=== PATIENT | male | born 1995 | race Caucasian/White ===

== ENCOUNTER 2024-12-01 14:17 | Emergency (ER) | payer OTHER, SELFPAY ==
[2024-12-01 14:40] VITALS: BP 148/82; PULSE 108; RESP 18; TEMP 38.1; O2SAT 99; BMI 27.6
[2024-12-01 15:59] VITALS: BP 139/82; PULSE 115; RESP 18; TEMP 36.9; O2SAT 100
[2024-12-01] MEDS: LIDOCAINE 1% W/EPI 20ML 10 ML SUBCUT (17:17)
--- NOTE | 2024-12-01 17:50 | ED_ITS ---
<Statement entered by Jl Singh DO - 12/01/24 22:57> Dr. Singh: I was immediately available in the department for consultation. I did not actually see the patient. HPI - Skin/Abscess/Foreign Bdy General Chief complaint: Skin/Abscess/Foreign Body Stated complaint: Cyst on neck x2 weeks Time Seen by Provider: 12/01/24 15:42 Source: patient Mode of arrival: Ambulatory Limitations: no limitations History of Present Illness HPI narrative: 29-year-old male presents with concern for 2 weeks of swelling and mild tenderness at the back of his neck. He states that he has been looking in the mirror it does not feel like the area has gotten larger there has been a small amount of redness there but he thinks it is possible that this is from his shirt collar rubbing on it. He states he is always wearing something over the area at work. It has been slightly tender to touch and he came in today not because it was getting worse but because it has persisted for 2 weeks. He does not remember having any cyst there in the past and does not feel he has ever had any skin abscess issues or swelling at that site. He has been dealing with upper respiratory symptoms for the past few days to week states he has been congested and has had a mild sore throat/cough. He has not concerned about these symptoms now and does not request testing for this. Related Data Previous Rx's Medication Instructions Recorded amoxicillin 875 mg-potassium 1 tab PO Q12H 10 days #20 tabs 12/01/24 clavulanate 125 mg tablet Allergies Allergy/AdvReac Type Severity Reaction Status Date / Time No Known Drug Allergies Allergy Verified 12/01/24 14:46 Review of Systems Review of Systems Narrative: See HPI Patient History Social History Smoking Status: Never smoker Smoking Status: Never smoker Exam Narrative Exam Narrative: GENERAL: [29] year old patient appears stated age. Well-developed patient, in mild distress. Nontoxic appearing. HEAD: Atraumatic. Normocephalic. EYES: Pupils equal round and reactive. Extraocular motions intact. No scleral icterus. No injection or drainage. ENT: See back. Nose without bleeding, purulent drainage. Airway patent. NECK: Trachea midline. Non tender CARDIOVASCULAR: Regular rate and rhythm without murmurs, gallops, or rubs. RESPIRATORY: Clear to auscultation. Breath sounds equal bilaterally. No wheezes, rales, or rhonchi. EXTREMITIES: Moving all extremities, normal gait BACK: There is an approximately 3 cm x 4 cm by 1 cm in depth/height mass on the patient's low posterior neck slightly left of midline. There is mild erythema present in approximately a 2 cm area it is generally firm and indurated however the center of the lesion does have some fluctuance present. It is moderately tender to palpation over the center of the lesion. Nontender without deformity or crepitance. No flank tenderness. NEURO: AOx3. SKIN: No rash or erythema of visible areas Initial Vital Signs Initial Vital Signs: Vital Signs Temperature 100.6 F H 12/01/24 14:40 Pulse Rate 108 H 12/01/24 14:40 Respiratory Rate 18 12/01/24 14:40 Blood Pressure 148/82 H 12/01/24 14:40 Pulse Oximetry 99 12/01/24 14:40 Oxygen Delivery Method Room Air 12/01/24 14:40 Procedures Abscess I/D I&D #1: Time of procedure: 18:10 Site: neck (posterior low) Side (if applicable): left Sedation/analgesia: none Local Anesthetic: lidocaine 1% and with epi Amount of anesthesia used (mL): 4 Technique: incised with #11 blade (6mm stab/incision) Amount of fluid expressed (mL): 5 Irrigation: Yes (30 cc NS pressure irrigation) Packing used?: iodoform (2,5cm) Course Orders Ordered: ED Orders 12/01/24 18:20 Wound Culture and Gram Stain Stat Discontinued Medications Amoxicillin/Clavulanate Potassium (Amoxicillin/Clav 875/125 Mg) 1 tab PO NOW ONE Stop: 12/01/24 18:50 Last Admin: 12/01/24 19:03 Dose: 1 tab Documented By: AIDEE Lidocaine/Epinephrine (Lidocaine 1% W/Epi 20ml) 10 ml SUBCUT NOW ONE Stop: 12/01/24 17:01 Last Admin: 12/01/24 17:17 Dose: 10 ml Documented By: AIDEE Vital Signs Vital signs: Vital Signs - 8 hr 12/01/24 14:40 12/01/24 15:59 Temperature 100.6 F H 98.5 F Pulse Rate 108 H 115 H Respiratory Rate 18 18 Blood Pressure 148/82 H 139/82 Pulse Oximetry 99 100 Oxygen Delivery Method Room Air Room Air MDM - Skin/Abscess/Foreign Bdy Differential Diagnosis Differential diagnosis: Likely abscess of skin or subcutaneous tissue, cell ulitis and other (Infected sebaceous cyst, URI) MDM Narrative Medical decision making narrative: Is a generally healthy 21-year-old male presenting with concern for a mass on the back of his neck that is slightly tender present for 2 weeks not growing in size or changing per patient. Exam is consistent with a abscess or infected sebaceous cyst. After discussion with the patient of options he elects to have incision and drainage, feel this is reasonable given location and fluctuance present at the center. There was relatively copious purulent material exuded after incision with an 11 blade and patient also had Casseous type material present. A wound culture was obtained and packing was placed. Patient recommended to follow up for a recheck and have packing removed or replaced in 48-72 hours. He was started on Augmentin with the 1st dose today in the emergency department. He had a very low-grade fever initially however on recheck with a oral thermometer he did not have a fever. He was slightly tachycardic initially as well but endorsed anxiety and nervousness about being in the ER and the procedure. He was quite well-appearing have low concern for sepsis, additional labs were not checked. The lesion itself was not suggestive of severe infection and appeared localized. Patient tolerated the procedure well. Return precautions provided, follow-up plan discussed, all questions answered. Discharge Plan Departure Patient Disposition: Home Clinical Impression: Cutaneous abscess of neck, Sebaceous cyst Activity Restrictions/Additional Instructions: *You have been diagnosed with [infected sebaceous cyst/abscess] *What to do: *Please continue to take your regular medications as directed. [1 ] New medication prescriptions sent to your pharmacy: [Augmentin] [ ] New medication written as a paper prescription [ ] No new medications given *Please follow up with your primary care provider in 2-3 days, call for an appointment. Let them know you were seen in the Emergency Department and that we ask that you be seen in follow up. We will electronically transmit a record of today's note if your PCP is in our system. You came in today with concern for a mass on the back of your neck that has been present for a few weeks. We performed an incision and drainage of the site and there was quite a bit of purulent/pus-like material that came out and some material that was consistent with a sebaceous cyst. I suspect that this is a infected sebaceous cyst. As we discussed you will likely have to have another procedure with dermatology or possibly your primary care provider if they are open to doing it to have this cyst sac fully removed. We placed you on antibiotics today please take these for the full course. We also placed some packing in the wound to allow it to continue to drain. I would like you to have this wound looked at again in 48-72 hours and at that time likely have the packing removed it is possible that provider may want to Re pack it but hopefully this should not be necessary. I do recommend you contact Dermatology and work on getting an appointment to have this addressed. Even if the infection resolves it was likely to become inflamed or possibly infected again in the future if it is truly a sebaceous cyst. We did get a culture today and once the lab results returned we will have more information regarding infection. Monitor for fevers, increasing pain or new swelling at that site or any other symptoms of concern and make sure you get rechecked these develop. I hope you feel better soon *If you do not have a primary care provider please contact the [facility] Resource line at [phone]. They will ask some questions about your medical history and help get you set up with a doctor in the community. *Return to Emergency Department if you should have any new, worsening or concerning symptoms, such as [fever greater than 101 F, shaking chills, worsening pain, persistent vomiting or other bothersome symptoms] Prescriptions: New amoxicillin-pot clavulanate 875-125 mg tablet 1 tab PO Q12H 10 Days Qty: 20 0RF Referrals: Eleanor Puga MD [Primary Care Provider] - Stand Alone Forms: Patient Portal/API/Survey
[2024-12-01] MEDS: AMOXICILLIN/CLAV 875/125 MG 1 TAB PO (19:03)
== END 2024-12-01 19:05 | disposition home or self-care (01) ==
PROVIDERS: Emergency Provider Student in an Organized Health Care Education/Training Program; Family Provider Family Medicine; PCP Family Medicine
DX: L02.11 Cutaneous abscess of neck (principal); L72.3 Sebaceous cyst
CPT/HCPCS: 10060; 87070; 87075; 87077; 87205; 99283